=== PATIENT | male | born 1990 | race Caucasian/White ===

== ENCOUNTER 2023-06-30 19:03 | Emergency (ER) | payer SELFPAY ==
[2023-06-30] MEDS ORDERED: Fluorescein Opthalmic Strip ONE (19:45)
== END 2023-06-30 20:10 | disposition home or self-care (01) ==
LOC: CSHERS 19:03
DX: H16.133 Photokeratitis, bilateral (principal); F17.210 Nicotine dependence, cigarettes, uncomplicated
CPT/HCPCS: 99283